=== PATIENT | female | born 1965 | race Hispanic/Latino ===

== ENCOUNTER 2020-06-10 12:27 | Emergency (ER) | payer OTHER, SELFPAY ==
[2020-06-10 12:28] VITALS: BP 147/85; PULSE 88; RESP 18; TEMP 36.8; O2SAT 97; BMI 32.6
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
[2020-06-10 14:31] VITALS: BP 152/80; PULSE 96; RESP 18; TEMP 36.6
[2020-06-10] MEDS: Acetaminophen 500 MG Tablet 1000 MG PO (14:31)
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
== END 2020-06-10 14:39 | disposition home or self-care (01) ==
PROVIDERS: Emergency Provider Student in an Organized Health Care Education/Training Program
DX: S00.03XA Contusion of scalp, initial encounter (principal); S00.83XA Contusion of other part of head, initial encounter; V59.88XA Occupant (driver) (passenger) of pick-up truck or van injured in other specified transport accidents, initial encounter; Y92.410 Unspecified street and highway as the place of occurrence of the external cause; Y93.89 Activity, other specified; Y99.9 Unspecified external cause status
CPT/HCPCS: 70450; 70486; 99283